=== PATIENT | female | born 1975 | race Caucasian/White ===

== ENCOUNTER → 2017-01-22 | Outpatient (CLI) | payer OTHER ==
[2017-01-22 09:51] LABS: HEMOGLOBIN 13.8 gm/dl (12.3-15.3); RED BLOOD COUNT 4.2 M/UL (4.00-5.10); WHITE BLOOD COUNT 7.4 K/UL (4.5-11.0)
[2017-01-22 10:11] LABS: BUN/CREATININE RATIO 19 (0-10)
== END ==
LOC: MAMO 01-11 15:10
PROVIDERS: Nurse Practitioner Family
DX: Z12.31 Encounter for screening mammogram for malignant neoplasm of breast (principal); Z00.00 Encounter for general adult medical examination without abnormal findings; J01.00 Acute maxillary sinusitis, unspecified; E78.5 Hyperlipidemia, unspecified; E88.81 Metabolic syndrome and other insulin resistance; M54.16 Radiculopathy, lumbar region; G43.909 Migraine, unspecified, not intractable, without status migrainosus; R53.83 Other fatigue; K59.00 Constipation, unspecified; E55.9 Vitamin D deficiency, unspecified
CPT/HCPCS: 36415; 80053; 80061; 82607; 84439; 84443; 85025; G0202

== ENCOUNTER → 2020-11-05 | Outpatient (CLI) | payer OTHER ==
[~2020-11-05] MED LIST: AMITRIPTYLINE H10 MG PO; FOLIC ACID1 MG PO; METHOTREXATE2.5 MG PO; MIRALAX17 GM PO; PANTOPRAZOLE SO40 MG PO; PROTONIX40 MG PO; QMIIZ ODT15 MG PO; TRAMADOL HCL50 MG PO; TREXALL10 MG PO; ULTRAM50 MG PO; VIT D PO; VITAMIN D1000 UNIT PO
== END ==
LOC: EXRD 13:58
DX: M54.2 Cervicalgia (principal)
CPT/HCPCS: 72050

== ENCOUNTER → 2020-12-23 | Outpatient (CLI) | payer OTHER | LOC: EXRD 14:26 | DX: J20.9 Acute bronchitis, unspecified (principal); J18.8 Other pneumonia, unspecified organism | CPT/HCPCS: 71046 ==

== ENCOUNTER 2020-12-24 08:41 | Emergency (ER) | payer OTHER ==
[2020-12-24 11:03] LABS: HEMOGLOBIN 15.9 gm/dl (12.3-15.3); RED BLOOD COUNT 4.68 M/UL (4.00-5.10); WHITE BLOOD COUNT 15.9 K/UL (4.5-11.0)
[2020-12-24 11:34] LABS: BUN/CREATININE RATIO 15 (0-10)
== END 2020-12-24 13:00 | disposition home or self-care (01) ==
LOC: ER1 08:41
PROVIDERS: Emergency Medicine
DX: J18.9 Pneumonia, unspecified organism (principal); M06.9 Rheumatoid arthritis, unspecified; Z20.822 Contact with and (suspected) exposure to COVID-19; Z90.49 Acquired absence of other specified parts of digestive tract; F17.200 Nicotine dependence, unspecified, uncomplicated
CPT/HCPCS: 71046; 80053; 82550; 82553; 83874; 84484; 85025; 85379; 94664; 94760; 99283; U0002